=== PATIENT | female | born 1960 | race Caucasian/White ===

== ENCOUNTER 2016-10-09 05:34 | Emergency (ER) | payer OTHER ==
[~2016-10-09] VITALS: Ht 160 cm; Wt 59.1 kg
[2016-10-09 05:47] VITALS: BP 129/84; PULSE 68; RESP 18; TEMP 98.4; O2SAT 98
--- NOTE | 2016-10-09 06:02 | PD ---
HPI Chief Complaint: Cold / Flu Symptoms Time Seen by Provider: 05:59 Travel History International Travel<30 days: No Contact w/Intl Traveler<30days: No Traveled to known affect area: No History of Present Illness HPI 56-year-old female presents to the emergency department by private vehicle for evaluation of one week of cold symptoms and 1 day of right-sided chest pain. Patient has history of asthma. Patient just completed as he pack yesterday. Patient's had subjective fever. Patient's had cough productive of yellow-green sputum. Today patient's had epistaxis. Patient has an inhaler. Patient smokes cigarettes. No abdominal pain. Patient rates pain as moderate to severe. No recent long distance travel protracted bedrest her surgical procedure. No personal history of family history of clotting disorder. PFSH Past Medical History Narrative Medical Asthma/bronchitis tobacco use nursing notes reviewed ?: Not Social History Tobacco Use: Yes Allergies-Medications (Allergen,Severity, Reaction): Coded Allergies: Codeine (Verified Allergy, Severe, Rash, 10/09/16) Penicillin (Verified Allergy, Severe, Rash, 10/09/16) Sulfa (Verified Allergy, Severe, Hotflash, 10/09/16) Reported Meds & Prescriptions Reported Meds & Active Scripts Active Proventil Hfa 6.7 GM Inh (Albuterol Sulfate) 90 Mcg/Act Aer 2 Puff INH Q4-6H PRN Prednisone 50 Mg Tab 50 Mg PO DAILY 4 Days Doxycycline Hyclate 100 Mg Tab 100 Mg PO BID 7 Days Review of Systems Except as stated in HPI: all other systems reviewed are Neg General / Constitutional: Positive: Fever HENT: Positive: Congestion, Nosebleed (subjective) Cardiovascular: Positive: Chest Pain or Discomfort Respiratory: Positive: Cough, Shortness of Breath, Wheezing Gastrointestinal: No: Vomiting, Abdominal Pain Genitourinary: No: Flank Pain Musculoskeletal: No: Myalgias, Arthralgias Skin: No Rash Neurologic: No: Weakness Psychiatric: No: Anxiety Hematologic/Lymphatic: No: Lymph Node Enlargement Physical Exam Narrative GENERAL: Well-developed well-nourished female in no acute distress no respiratory distress SKIN: Warm and dry. HEAD: Normocephalic. EYES: No scleral icterus. No injection or drainage. NECK: Supple, trachea midline. No JVD or lymphadenopathy. CARDIOVASCULAR: Regular rate and rhythm without murmurs, gallops, or rubs. RESPIRATORY: Breath sounds equal bilaterally. No accessory muscle use. GASTROINTESTINAL: Abdomen soft, non-tender, nondistended. MUSCULOSKELETAL: No cyanosis, or edema. BACK: Nontender without obvious deformity. No CVA tenderness. Data Data Last Documented VS Vital Signs Date Time Temp Pulse Resp B/P Pulse Ox O2 Delivery O2 Flow Rate FiO2 10/09/16 07:13 82 18 114/80 96 Room Air 10/09/16 05:47 98.4 Orders Complete Blood Count With Diff (10/09/16 06:02) Basic Metabolic Panel (Bmp) (10/09/16 06:02) B-Type Natriuretic Peptide (10/09/16 06:02) Troponin I (10/09/16 06:02) Iv Access Insert/Monitor (10/09/16 06:02) Electrocardiogram (10/09/16 06:02) Ecg Monitoring (10/09/16 06:02) Oximetry (10/09/16 06:02) Chest, Single Ap (10/09/16 06:02) Methylprednisolone So Succ Inj (Solumedr (10/09/16 06:15) Albuterol-Ipratropium Neb (Duoneb Neb) (10/09/16 06:15) Ketorolac Inj (Toradol Inj) (10/09/16 07:00) D-Dimer (10/09/16 07:00) Labs Laboratory Tests Test 10/09/16 06:15 White Blood Count 4.1 TH/MM3 Red Blood Count 5.22 MIL/MM3 Hemoglobin 14.4 GM/DL Hematocrit 42.2 % Mean Corpuscular Volume 80.9 FL Mean Corpuscular Hemoglobin 27.6 PG Mean Corpuscular Hemoglobin 34.1 % Concent Red Cell Distribution Width 12.8 % Platelet Count 108 TH/MM3 Mean Platelet Volume 9.7 FL Neutrophils (%) (Auto) 42.4 % Lymphocytes (%) (Auto) 39.6 % Monocytes (%) (Auto) 9.5 % Eosinophils (%) (Auto) 8.0 % Basophils (%) (Auto) 0.5 % Neutrophils # (Auto) 1.8 TH/MM3 Lymphocytes # (Auto) 1.6 TH/MM3 Monocytes # (Auto) 0.4 TH/MM3 Eosinophils # (Auto) 0.3 TH/MM3 Basophils # (Auto) 0.0 TH/MM3 CBC Comment DIFF FINAL Differential Comment Sodium Level 145 MEQ/L Potassium Level 3.9 MEQ/L Chloride Level 110 MEQ/L Carbon Dioxide Level 28.9 MEQ/L Anion Gap 6 MEQ/L Blood Urea Nitrogen 14 MG/DL Creatinine 0.80 MG/DL Estimat Glomerular Filtration 74 ML/MIN Rate Random Glucose 97 MG/DL Calcium Level 8.3 MG/DL Troponin I LESS THAN 0.02 NG/ML B-Type Natriuretic Peptide 84 PG/ML MDM Medical Decision Making Medical Screen Exam Complete: Yes Emergency Medical Condition: Yes Medical Record Reviewed: Yes Interpretation(s) EKG: Normal sinus rhythm rate [address] elevation injury pattern or ectopy noted cxr: FINDINGS: A single view of the chest demonstrates the lungs to be symmetrically aerated without evidence of mass, infiltrate or effusion. The cardiomediastinal contours are unremarkable. Osseous structures are intact. CONCLUSION: 1. No acute cardiopulmonary disease. Luis E Cross MD on October 09, 2016 at 6:56 Board Certified Radiologist. This report was verified electronically. bnp: 84, not elevated troponin I: less than 0.02, not elevated cbc: wnl except for eosinophilia and monocytosis Differential Diagnosis Bronchitis, pneumonia, pneumothorax, pleurisy, PE Narrative Course Specimens collected and sent for resulting patient given DuoNe updraft Solu- Medrol and chest x-ray ordered @7:06 AM patient is clinically improved; pain has diminished; EKG shows no acute injury pattern change; cardiac enzymes within normal range; total white cell count is normal except for eosinophilia by automated differential as patient may have as well as infectious allergic component to her reactive airways disease. Patient is aware of pending labwork and administer Toradol 30 mg IV sign over care and disposition to Dr Balbuena Diagnosis Primary Impression: Bronchitis Additional Impression: Pleurisy Referrals: Primary Care Physician 1 day Patient Instructions: General Instructions Additional Instructions: Increase fluid hydration Follow-up with primary care provider Return to the emergency department for any concerns or change in condition Take medications as prescribed Med/Other Pt SpecificInfo: Prescription(s) given Scripts Albuterol 6.7 GM Inh (Proventil Hfa 6.7 GM Inh)90 Mcg/Act Aer2 Puff INH Q4-6H PRN (SHORTNESS OF BREATH) #1 INHALER Ref 0 Prov:Sally Jon MD 10/09/16 Prednisone 50 Mg Tab50 Mg PO DAILY 4 Days Ref 0 Prov:Sally Jon MD 10/09/16 Doxycycline Hyclate 100 Mg [id number] Mg PO BID 7 Days Prov:Sally Jon MD 10/09/16 Sally Jon MD Oct 09, 2016 06:02
[2016-10-09 06:07] VITALS: RESP 18; O2SAT 98
[2016-10-09] MEDS ORDERED: methylPREDNISolone SOD SUCC 125 MG/2 ML VIAL IVP ONE (06:15)
[2016-10-09] MEDS: RESP: ALBUTEROL 2.5 MG/IPRATROPIUM 0.5 MG NEB (SCH) INH (06:19)
[2016-10-09 06:38] LABS: AUTOMATED NEUTROPHIL # 1.8 TH/MM3 (1.8-7.7); BASOPHIL % 0.5 % (0.0-2.0); EOSINOPHIL # 0.3 TH/MM3 (0-0.4); HEMATOCRIT 42.2 % (35.0-46.0); HEMO FLAGS DIFF FINAL; LYMPH % 39.6 % (9.0-44.0); LYMPHOCYTE # 1.6 TH/MM3 (1.0-4.8); MEAN CELL VOLUME 80.9 FL (80.0-100.0); MEAN CORPUSCULAR HEMOGLOBIN 27.6 PG (27.0-34.0); MEAN CORPUSCULAR HGB CONC 34.1 % (32.0-36.0); MONO % 9.5 % (0.0-8.0); NEUT % 42.4 % (16.0-70.0); PLATELET COUNT 108 TH/MM3 (150-450); RED BLOOD COUNT 5.22 MIL/MM3 (4.00-5.30); RED CELL DISTRIBUTION WIDTH 12.8 % (11.6-17.2); WHITE BLOOD COUNT 4.1 TH/MM3 (4.0-11.0)
[2016-10-09 06:46] LABS: CHLORIDE 110 MEQ/L (98-107); POTASSIUM 3.9 MEQ/L (3.5-5.1); SODIUM (NA) 145 MEQ/L (136-145)
[2016-10-09 06:49] LABS: ANION GAP 6 MEQ/L (5-15); BICARBONATE 28.9 MEQ/L (21.0-32.0); BLOOD UREA NITROGEN 14 MG/DL (7-18)
[2016-10-09 06:52] LABS: GLOMERULAR FILTRATION RATE 74 ML/MIN (>89)
--- NOTE | 2016-10-09 06:58 | RADHPO ---
EXAM DATE/TIME: 10/09/2016 06:42 [facility] COMPARISON: No previous studies available for comparison. INDICATIONS : Right side chest pain on inspiration. MEDICAL HISTORY : None. SURGICAL HISTORY : None. ENCOUNTER: Initial ACUITY: 2 days PAIN SCORE: 7/10 LOCATION: Right chest FINDINGS: A single view of the chest demonstrates the lungs to be symmetrically aerated without evidence of mas s, infiltrate or effusion. The cardiomediastinal contours are unremarkable. Osseous structures are intact. CONCLUSION: 1. No acute cardiopulmonary disease. Luis E Cross MD on October 09, 2016 at 6:56 Board Certified Radiologist. This report was verified electronically.
[2016-10-09] MEDS ORDERED: KETOROLAC TROMETHAMINE 30 MG/ML (IVP) VIAL IV PUSH ONE (07:00)
[2016-10-09 07:13] VITALS: BP 114/80; PULSE 82; RESP 18; O2SAT 96
[2016-10-09] MEDS ORDERED: ALBU6.7H INH (07:16)
[2016-10-09] MEDS ORDERED: DOXY100T PO (07:16)
[2016-10-09] MEDS ORDERED: PRED50 PO (07:16)
--- NOTE | 2016-10-09 08:00 | PD ---
Physical Exam Date Seen by Provider: Oct 09, 2016 Data Data Last Documented VS Vital Signs Date Time Temp Pulse Resp B/P Pulse Ox O2 Delivery O2 Flow Rate FiO2 10/09/16 07:13 82 18 114/80 96 Room Air 10/09/16 05:47 98.4 Orders Complete Blood Count With Diff (10/09/16 06:02) Basic Metabolic Panel (Bmp) (10/09/16 06:02) B-Type Natriuretic Peptide (10/09/16 06:02) Troponin I (10/09/16 06:02) Iv Access Insert/Monitor (10/09/16 06:02) Electrocardiogram (10/09/16 06:02) Ecg Monitoring (10/09/16 06:02) Oximetry (10/09/16 06:02) Chest, Single Ap (10/09/16 06:02) Methylprednisolone So Succ Inj (Solumedr (10/09/16 06:15) Albuterol-Ipratropium Neb (Duoneb Neb) (10/09/16 06:15) Ketorolac Inj (Toradol Inj) (10/09/16 07:00) D-Dimer (10/09/16 07:00) Labs Laboratory Tests Test 10/09/16 10/09/16 06:15 07:08 White Blood Count 4.1 TH/MM3 Red Blood Count 5.22 MIL/MM3 Hemoglobin 14.4 GM/DL Hematocrit 42.2 % Mean Corpuscular Volume 80.9 FL Mean Corpuscular Hemoglobin 27.6 PG Mean Corpuscular Hemoglobin 34.1 % Concent Red Cell Distribution Width 12.8 % Platelet Count 108 TH/MM3 Mean Platelet Volume 9.7 FL Neutrophils (%) (Auto) 42.4 % Lymphocytes (%) (Auto) 39.6 % Monocytes (%) (Auto) 9.5 % Eosinophils (%) (Auto) 8.0 % Basophils (%) (Auto) 0.5 % Neutrophils # (Auto) 1.8 TH/MM3 Lymphocytes # (Auto) 1.6 TH/MM3 Monocytes # (Auto) 0.4 TH/MM3 Eosinophils # (Auto) 0.3 TH/MM3 Basophils # (Auto) 0.0 TH/MM3 CBC Comment DIFF FINAL Differential Comment Sodium Level 145 MEQ/L Potassium Level 3.9 MEQ/L Chloride Level 110 MEQ/L Carbon Dioxide Level 28.9 MEQ/L Anion Gap 6 MEQ/L Blood Urea Nitrogen 14 MG/DL Creatinine 0.80 MG/DL Estimat Glomerular Filtration 74 ML/MIN Rate Random Glucose 97 MG/DL Calcium Level 8.3 MG/DL Troponin I LESS THAN 0.02 NG/ML B-Type Natriuretic Peptide 84 PG/ML D-Dimer Quantitative (PE/DVT) 0.23 MG/L FEU [facility] Medical Record Reviewed: Yes Supervised Visit with GWEN: No Interpretation(s) Vital Signs Date Time Temp Pulse Resp B/P Pulse Ox O2 Delivery O2 Flow Rate FiO2 10/09/16 07:13 82 18 114/80 96 Room Air 10/09/16 06:07 18 98 Room Air 10/09/16 06:00 68 18 98 Room Air 10/09/16 05:47 98.4 68 18 129/84 98 Last Impressions Chest X-Ray 10/09/16 0602 Signed Impressions: Service Date/Time: Sunday, October 09, 2016 06:42 - CONCLUSION: 1. No acute cardiopulmonary disease. Luis E Cross MD Laboratory Tests Test 10/09/16 10/09/16 06:15 07:08 White Blood Count 4.1 TH/MM3 (4.0-11.0) Red Blood Count 5.22 MIL/MM3 (4.00-5.30) Hemoglobin 14.4 GM/DL (11.6-15.3) Hematocrit 42.2 % (35.0-46.0) Mean Corpuscular Volume 80.9 FL (80.0-100.0) Mean Corpuscular Hemoglobin 27.6 PG (27.0-34.0) Mean Corpuscular Hemoglobin 34.1 % Concent (32.0-36.0) Red Cell Distribution Width 12.8 % (11.6-17.2) Platelet Count 108 TH/MM3 (150-450) Mean Platelet Volume 9.7 FL (7.0-11.0) Neutrophils (%) (Auto) 42.4 % (16.0-70.0) Lymphocytes (%) (Auto) 39.6 % (9.0-44.0) Monocytes (%) (Auto) 9.5 % (0.0-8.0) Eosinophils (%) (Auto) 8.0 % (0.0-4.0) Basophils (%) (Auto) 0.5 % (0.0-2.0) Neutrophils # (Auto) 1.8 TH/MM3 (1.8-7.7) Lymphocytes # (Auto) 1.6 TH/MM3 (1.0-4.8) Monocytes # (Auto) 0.4 TH/MM3 (0-0.9) Eosinophils # (Auto) 0.3 TH/MM3 (0-0.4) Basophils # (Auto) 0.0 TH/MM3 (0-0.2) CBC Comment DIFF FINAL Differential Comment Sodium Level 145 MEQ/L (136-145) Potassium Level 3.9 MEQ/L (3.5-5.1) Chloride Level 110 MEQ/L (98-107) Carbon Dioxide Level 28.9 MEQ/L (21.0-32.0) Anion Gap 6 MEQ/L (5-15) Blood Urea Nitrogen 14 MG/DL (7-18) Creatinine 0.80 MG/DL (0.50-1.00) Estimat Glomerular Filtration 74 ML/MIN (>89) Rate Random Glucose 97 MG/DL (74-106) Calcium Level 8.3 MG/DL (8.5-10.1) Troponin I LESS THAN 0.02 NG/ML (0.02-0.05) B-Type Natriuretic Peptide 84 PG/ML (0-100) D-Dimer Quantitative (PE/DVT) 0.23 MG/L FEU (0.00-0.50) Differential Diagnosis Pneumonia, bronchitis, PE, pleurisy Narrative Course Patient was signed out to me by Dr. Jon. Please see previous providers history of present illness and chart All labs and studies and ekg resulted, Dimer was ordered at change of shift, request that D-dimer be checked. If negative, requests patient be discharged home with outpatient follow-up. D.Dimer 0.23 - negative with low probability for PE. EKG NSR at 68bpm, qt/qtc: 410/424, no acute st or t wave changes Patient is a 56-year-old female who presents to emergency room with complaints of cough and congestion. Patient reports that she recently was treated with steroids, albuterol, antibiotics for acute bronchitis. Patient reports that her last dose of medications was yesterday. Patient reports that she is still not feeling any better, reports that she is still has a productive cough and increased nasal congestion. Patient reports that when she hurts, she has increased pain to the right side of her chest. She reports that her symptoms are sharp and stabbing in nature, and worse with coughing. Patient with no history of hypertension, hyperlipidemia, diabetes, coronary disease, reports that symptoms are pleuritic in nature. Patient with no diaphoresis or nausea or vomiting with chest pain. Patient currently with no pain at this time. Patient is a smoker, reports that she will try to quit smoking soon. CBC WBC 4.1 Hemoglobin 14.4 Hematocrit 42.2 Platelets 108 BMP Sodium 145 Chloride 110 Potassium 3.9 BUN 14 Creatinine 0.8 Troponin 0.02 BNP 84 D dimer 0.23 I reviewed all labs and all studies with patient in detail. Patient most likely with bronchitis which has not resolved. Patient will follow-up with a primary care doctor and return to emergency room as needed. Signs and Symptoms of when to return to the emergency room was reviewed with patient detail. Diagnosis Primary Impression: Bronchitis Additional Impressions: Pleurisy Thrombocytopenia Referrals: Primary Care Physician 1 day Patient Instructions: General Instructions, Pleurisy (ED), Acute Bronchitis (ED ) Departure Forms: Tests/Procedures Additional Instruction: Increase fluid hydration Follow-up with primary care provider Return to the emergency department for any concerns or change in condition Take medications as prescribed Scripts Albuterol 6.7 GM Inh (Proventil Hfa 6.7 GM Inh)90 Mcg/Act Aer2 Puff INH Q4-6H PRN (SHORTNESS OF BREATH) #1 INHALER Ref 0 Prov:Sally Jon MD 10/09/16 Prednisone 50 Mg Tab50 Mg PO DAILY 4 Days Ref 0 Prov:Sally Jon MD 10/09/16 Doxycycline Hyclate 100 Mg [id number] Mg PO BID 7 Days Prov:Sally Jon MD 10/09/16 Disposition: 01 DISCHARGE HOME Condition: Stable BalbuenaBreanne DO Oct 09, 2016 08:00
--- NOTE | 2016-10-09 17:36 | EKG ---
Date Performed: 10/09/2016 Time Performed: 06:10:22 PTAGE: 56 years EKG: Sinus rhythm Normal ECG NO PREVIOUS TRACING DOCTOR: Sathish Jang Interpretating Date/Time 10/09/2016 17:35:20
== END 2016-10-09 08:26 | disposition home or self-care (01) ==
LOC: PHED 05:34
DX: J40 Bronchitis, not specified as acute or chronic (principal); R09.1 Pleurisy; D69.6 Thrombocytopenia, unspecified; J45.909 Unspecified asthma, uncomplicated; R05 Cough; R04.0 Epistaxis; R50.9 Fever, unspecified; Z72.0 Tobacco use
CPT/HCPCS: 71010; 80048; 83880; 84484; 85025; 85379; 93005; 94640; 94664; 96374; 96375; 99284; J1885; J2930